=== PATIENT | male | born 1990 | race Caucasian/White ===

== ENCOUNTER 2017-11-03 18:29 | Emergency (ER) | payer MEDICAID, OTHER ==
[~2017-11-03] VITALS: Ht 180.3 cm; Wt 122.7 kg
[~2017-11-03 18:29] MED LIST: CLIN-80 PO; CYCL-1 PO; HYDR-569 PO; NAPR-56 PO
[2017-11-03 18:51] VITALS: BP 142/120
[2017-11-03] MEDS ORDERED: AMOX500C2 PO (19:45)
[2017-11-03] MEDS ORDERED: pseudoephedrine 30mg tablet PO ONE (19:45)
== END 2017-11-03 20:01 | disposition home or self-care (01) ==
LOC: ER 18:30
DX: H66.91 Otitis media, unspecified, right ear (principal)
CPT/HCPCS: 99283